=== PATIENT | female | born 1965 | race Caucasian/White ===

== ENCOUNTER 2017-11-20 11:32 | Emergency (ER) | payer OTHER ==
[2017-11-20] MEDS ORDERED: NS 500 ML IV ONE ×2 (11:45→12:09)
[2017-11-20] MEDS ORDERED: ASPIRIN 81 MG CHEWABLE TAB PO ONE (11:56)
[2017-11-20 12:11] LABS: PLATELET COUNT 261 10^3/uL (150-400)
[2017-11-20 12:21] LABS: INR 0.88 (0.83-1.16); PROTIME(PATIENT) 12.2 SEC (12.0-15.0)
--- NOTE | 2017-11-20 13:06 | EDPHY ---
H & P Time Seen by Provider: 11/20/17 11:44 HPI/ROS: HPI Chest discomfort, palpitations. 52-year-old female by private vehicle with her friend. This patient reports that at approximately 11:00 a.m. She had a sensation of her heart beating fast. She then developed which she describes as a mid substernal chest tightness and tingling and numbness in both arms and up through both sides of her neck to the level of her jaw. She reports that she had some lightheadedness but did not feel she was going to pass out. She sat down. She felt a little bit better and then was brought to the emergency department by her friend and co- worker. She has no prior cardiac history. No history of hypertension, diabetes , hyperlipidemia. She has does not smoke. No significant family cardiac history. She is feeling much better now. ROS: Constitutional: No fever, no chills. As above. Eyes: No discharge. No changes in vision. ENT: No sore throat. No nasal congestion or rhinorrhea. Respiratory: No cough. No shortness of breath. Cardiac: As above. Gastrointestinal: No abdominal pain, no vomiting, no diarrhea. Genitourinary: No hematuria. No dysuria or increased frequency with urination. Musculoskeletal: No back pain. No neck pain. No myalgias or arthralgias. Skin: No rashes. Neurological: No headache. No focal weakness or altered sensation. Past medical history: She is on hormone replacement therapy. She otherwise denies any past medical history. Social history: Nonsmoker. Here with her friend. No alcohol. Physical Exam: General Appearance: Alert, no distress. This patient is responding to questions appropriately and in full sentences. This patient appears well- hydrated and well-nourished. Eyes: Pupils equal and round no pallor or injection. No lid edema, erythema or injection. Respiratory: There are no retractions, lungs are clear to auscultation with good air movement bilaterally. Cardiovascular: Regular rate and rhythm. No murmur appreciated. Gastrointestinal: Abdomen is soft and nontender, no masses, bowel sounds normal. No focal tenderness at McBurney's point. No Rocha sign. Neurological: Motor sensory function is grossly intact. Cranial nerves are normal. Gait is normal. Skin: Warm and dry, no rashes. Musculoskeletal: Neck is supple and nontender. Extremities are symmetrical. All joints range without pain or impingement. Psychiatric: No agitation. No depression. Database: EKG: EKG time is 11:50 a.m.; EKG shows a narrow complex normal sinus rhythm with a ventricular rate of 89. The [place], QRS, QT intervals are within normal limits. There are no ST-T wave changes indicative of ischemic or injury pattern. No evidence of right heart strain. There is no evidence of WPW, Brugada syndrome, hypertrophic cardiomyopathy. Interpreted by me. Imaging: Procedures: Emergency department course: Triage vital signs reviewed. She is moderately hypertensive. Vital signs are otherwise normal. She is afebrile. She is chest pain-free in the emergency department. IV was placed. She was placed on a monitor. She was given 324 mg of chewed aspirin. EKG obtained and reviewed by myself. Heart score: 2. 1:00 p.m., the patient was re-evaluated. She is resting comfortably at this time. Results of her emergency department workup were discussed with her. Her heart score the interpretation of this was discussed. I discussed admission with her for observation. She does not want to be admitted. In my professional opinion, she understands the risks of declining admission. I will have her follow up with our cardiology service within the next 2-3 days for re- evaluation. She has been instructed not to engage in any strenuous physical activity until cleared by Cardiology. Return to emergency department precautions have thoroughly been reviewed with her. All of her questions were answered. She was discharged from the emergency department in good condition. ED outpatient cardiology consult has been ordered. Differential Diagnosis: The differential diagnosis on this patient includes but is not limited to SVT, anxiety reaction. Acute coronary syndrome, pulmonary embolism, ventricular tachycardia, thyroid storm, unlikely. This represents a partial list of diagnoses considered. These considerations are based on history, physical exam , past history, reassessment and diagnostic testing. Smoking Status: Never smoked Constitutional: Initial Vital Signs Temperature (C) 36.8 C 11/20/17 11:39 Heart Rate 90 11/20/17 11:39 Respiratory Rate 16 11/20/17 11:39 Blood Pressure 144/104 H 11/20/17 11:39 O2 Sat (%) 95 11/20/17 11:39 O2 Delivery Mode Room Air Allergies/Adverse Reactions: No Known Allergies Allergy (Unverified 11/20/17 11:39) Home Medications: Medication Instructions Recorded NK [No Known Home Meds] 11/20/17 Medical Decision Making - Data Points Laboratory Results: Laboratory Results 11/20/17 11:58 11/20/17 11:58 11/20/17 11/20/17 11/20/17 12:02 11:58 11:58 WBC RBC Hgb Hct MCV MCH MCHC RDW Plt Count MPV Neut % (Auto) Lymph % (Auto) [place] % (Auto) Eos % (Auto) Baso % (Auto) Nucleat RBC Rel Count Absolute Neuts (auto) Absolute Lymphs (auto) Absolute Monos (auto) Absolute Eos (auto) Absolute Basos (auto) Absolute Nucleated RBC Immature Gran % Immature Gran # PT 12.2 SEC SEC (12.0-15.0) INR 0.88 (0.83-1.16) APTT 24.9 SEC SEC (23.0-38.0) Sodium 140 mEq/L mEq/L (135-145) Potassium 3.7 mEq/L mEq/L (3.3-5.0) Chloride 105 mEq/L mEq/L (97-110) Carbon Dioxide 26 mEq/l mEq/l (22-31) Anion Gap 9 mEq/L mEq/L (8-16) BUN 11 mg/dL mg/dL (7-23) Creatinine 0.7 mg/dL mg/dL (0.6-1.0) Estimated GFR > 60 Glucose 93 mg/dL mg/dL (70-100) Calcium 9.8 mg/dL mg/dL (8.5-10.4) POC Troponin I 0.00 ng/mL ng/mL (0.00-0.08) 11/20/17 11:58 WBC 7.25 10^3/uL 10^3/uL (3.80-9.50) RBC 4.94 10^6/uL 10^6/uL (4.18-5.33) Hgb 14.8 g/dL g/dL (12.6-16.3) Hct 44.9 % % (38.0-47.0) MCV 90.9 fL fL (81.5-99.8) MCH 30.0 pg pg (27.9-34.1) MCHC 33.0 g/dL g/dL (32.4-36.7) RDW 12.5 % % (11.5-15.2) Plt Count 261 10^3/uL 10^3/uL (150-400) MPV 8.6 fL L fL (8.7-11.7) Neut % (Auto) 60.9 % % (39.3-74.2) Lymph % (Auto) 29.7 % % (15.0-45.0) [place] % (Auto) 6.5 % % (4.5-13.0) Eos % (Auto) 1.9 % % (0.6-7.6) Baso % (Auto) 0.7 % % (0.3-1.7) Nucleat RBC Rel Count 0.0 % % (0.0-0.2) Absolute Neuts (auto) 4.42 10^3/uL 10^3/uL (1.70-6.50) Absolute Lymphs (auto) 2.15 10^3/uL 10^3/uL (1.00-3.00) Absolute Monos (auto) 0.47 10^3/uL 10^3/uL (0.30-0.80) Absolute Eos (auto) 0.14 10^3/uL 10^3/uL (0.03-0.40) Absolute Basos (auto) 0.05 10^3/uL 10^3/uL (0.02-0.10) Absolute Nucleated RBC 0.00 10^3/uL 10^3/uL (0-0.01) Immature Gran % 0.3 % % (0.0-1.1) Immature Gran # 0.02 10^3/uL 10^3/uL (0.00-0.10) PT INR APTT Sodium Potassium Chloride Carbon Dioxide Anion Gap BUN Creatinine Estimated GFR Glucose Calcium POC Troponin I Medications Given: Discontinued Medications Aspirin (Aspirin) 324 mg PO EDNOW ONE Stop: 11/20/17 11:57 Last Admin: 11/20/17 12:05 Dose: 324 mg Sodium Chloride (Ns) 500 mls @ 1,000 mls/hr IV EDNOW ONE PRN Reason: Protocol Stop: 11/20/17 12:14 Last Admin: 11/20/17 12:05 Dose: 500 mls Sodium Chloride (Ns) 500 mls @ 1,000 mls/hr IV EDNOW ONE PRN Reason: Protocol Stop: 11/20/17 12:38 Last Admin: 11/20/17 12:37 Dose: 500 mls Point of Care Test Results: Chemistry 11/20/17 12:02 POC Troponin I 0.00 ng/mL ng/mL (0.00-0.08) Departure - Departure Disposition: Home, Routine, Self-Care Clinical Impression: Chest discomfort, Palpitations Condition: Good Instructions: Chest Pain (ED), Heart Palpitations (ED) Additional Instructions: Read and follow provided instructions. Follow-up with Dr. Zac Washington or 1 of his associates at [facility] within the next 2-3 days for re-evaluation and further management. Take 81 mg of chewed aspirin daily. No strenuous activity until cleared by Cardiology. Return to the emergency department for return of chest pain, palpitations, lightheadedness, shortness of breath or other serious concerns. Referrals: Conor Washington MD [Medical Doctor] - As per Instructions
[2017-11-20 13:32] VITALS: BP 147/114
--- NOTE | 2017-11-20 15:05 | CPEKG ---
Test Reason : OPEN Blood Pressure : / mmHG Vent. Rate : 089 BPM Atrial Rate : 090 BPM P-R Int : 118 ms QRS Dur : 074 ms QT Int : 356 ms P-R-T Axes : 055 067 021 degrees QTc Int : 434 ms Sinus rhythm Confirmed by Petrona Roland ([id number]) on 11/20/2017 3:04:52 PM Referred By: Confirmed By:Petrona Roland
== END 2017-11-20 13:31 | disposition home or self-care (01) ==
DX: R07.9 Chest pain, unspecified (principal); R00.2 Palpitations; E86.9 Volume depletion, unspecified
CPT/HCPCS: 84484-PO